=== PATIENT | female | born 1955 | race Caucasian/White ===

== ENCOUNTER 2020-04-25 | Outpatient (REF) | payer MEDICARE, MEDICAID, SELFPAY | END 2020-04-25 00:01 | LOC: HO.MMNH3L | PROVIDERS: Visit Provider Family Medicine | DX: Z20.828 Contact with and (suspected) exposure to other viral communicable diseases (principal) | CPT/HCPCS: U0003 ==

== ENCOUNTER 2020-10-10 07:28 | Outpatient (REF) | payer MEDICARE, MEDICAID, SELFPAY ==
[2020-10-10 09:31] LABS: Alanine Aminotransferase 17 U/L (0-31); Anion Gap 14 (12-20); Aspartate Amino Transferase 25 U/L (5-31); Carbon Dioxide 25 mmol/L (22-29); Chloride 106 mmol/L (96-108); Estimated Glomerular Filt Rate > 60; Potassium 4.6 mmol/L (3.3-5.1); Sodium 140 mmol/L (135-145)
[2020-10-10 09:37] LABS: Carbamazepine Tegretol 9.8 mcg/mL (5.0-12.0)
== END 2020-10-10 07:29 | disposition home or self-care (01) ==
LOC: HO.MMNH3L 07:28
PROVIDERS: Visit Provider Family Medicine
DX: E78.49 Other hyperlipidemia (principal)
CPT/HCPCS: 36415; 80051; 80156; 82565; 84450; 84460

== ENCOUNTER 2021-02-08 06:30 | Outpatient (REF) | payer MEDICARE, MEDICAID, SELFPAY ==
[2021-02-08 06:55] LABS: MANUAL DIFF FLAG NO
[2021-02-08 07:11] LABS: Basophils Percent Auto 0.5 % (0-2); Eosinophils Absolute Auto 0.1 X10*3/uL (0.0-0.4); Eosinophils Percent Auto 1.3 % (0-4); Hematocrit 40.7 % (37-47); Hemoglobin 13.5 g/dl (12.0-16.0); Imm Gran Abs Auto 0.02 X10*3/uL (0.00-0.03); Imm Gran Pct Auto 0.3 % (0.0-0.4); Lymphocytes Absolute Auto 2.7 X10*3/uL (1.2-4.9); Lymphocytes Percent Auto 44.3 % (20-40); Mean Corpuscular HGB Conc 33.2 g/dl (31.0-35.0); Mean Corpuscular Volume 90.4 fL (80-98); Mean Platelet Volume 9.4 fL (9.4-12.3); Monocytes Absolute Auto 0.5 X10*3/uL (0.1-1.2); Monocytes Percent Auto 8.1 % (2-11); Neutrophils Absolute Auto 2.8 X10*3/uL (2.0-8.3); Neutrophils Percent Auto 45.5 % (45-73); Platelet Count 174 X10*3/uL (160-400); White Blood Count 6.2 X10*3/uL (4.8-10.8)
[2021-02-08 07:54] LABS: Alanine Aminotransferase 13 U/L (0-31); Albumin Level 3.7 g/dL (3.5-5.0); Alkaline Phosphatase 74 U/L (39-117); Anion Gap 13 (12-20); Aspartate Amino Transferase 20 U/L (5-31); Bilirubin Direct < 0.2 mg/dL (0.0-0.5); Bilirubin Total < 0.2 mg/dL (0.0-1.0); Blood Urea Nitrogen 17 mg/dL (9-16); Calcium 9.2 mg/dL (8.4-10.2); Carbon Dioxide 26 mmol/L (22-29); Chloride 107 mmol/L (96-108); Estimated Glomerular Filt Rate > 60; Glucose Fasting 80 mg/dL (60-99); Magnesium 2.4 mg/dL (1.6-2.6); Potassium 4.7 mmol/L (3.3-5.1); Sodium 141 mmol/L (135-145); Total Protein 6.8 g/dL (6.5-8.0)
== END 2021-02-08 06:31 | disposition home or self-care (01) ==
LOC: HO.MMNH3L 06:30
PROVIDERS: Visit Provider Family Medicine
DX: I63.9 Cerebral infarction, unspecified (principal); M19.90 Unspecified osteoarthritis, unspecified site; F32.9 Major depressive disorder, single episode, unspecified
CPT/HCPCS: 36415; 80051; 80076; 82310; 82550; 82565; 82947; 83735; 84520; 85025

== ENCOUNTER 2021-09-11 07:36 | Outpatient (REF) | payer MEDICARE, MEDICAID, SELFPAY ==
[2021-09-11 07:40] LABS: MANUAL DIFF FLAG NO
[2021-09-11 08:04] LABS: Basophils Percent Auto 0.3 % (0-2); Eosinophils Absolute Auto 0.1 X10*3/uL (0.0-0.4); Hematocrit 41.7 % (37.0-47.0); Hemoglobin 13.6 g/dl (12.0-16.0); Imm Gran Abs Auto 0.02 X10*3/uL (0.00-0.03); Imm Gran Pct Auto 0.3 % (0.0-0.4); Lymphocytes Percent Auto 28.6 % (20-40); Mean Corpuscular HGB Conc 32.6 g/dl (31.0-35.0); Mean Corpuscular Hemoglobin 29.4 pg (27.0-33.0); Mean Corpuscular Volume 90.1 fL (80.0-98.0); Mean Platelet Volume 9.4 fL (9.4-12.3); Monocytes Absolute Auto 0.5 X10*3/uL (0.1-1.2); Monocytes Percent Auto 6.6 % (2-11); Neutrophils Absolute Auto 4.5 x10*3/uL (2.0-8.3); Neutrophils Percent Auto 63.2 % (45-73); Platelet Count 216 X10*3/uL (160-400); Red Blood Count 4.63 X10*6/uL (4.20-5.50); Red Cell Distribution Width 12.1 % (11.0-16.0); White Blood Count 7.1 X10*3/uL (4.8-10.8)
[2021-09-11 08:24] LABS: Alanine Aminotransferase 16 U/L (0-31); Anion Gap 12 (12-20); Carbon Dioxide 27 mmol/L (22-29); Chloride 105 mmol/L (96-108); Estimated Glomerular Filt Rate > 60; Potassium 4.5 mmol/L (3.3-5.1); Sodium 139 mmol/L (135-145)
[2021-09-11 09:11] LABS: Carbamazepine Tegretol 9.2 mcg/mL (5.0-12.0)
== END 2021-09-11 07:37 | disposition home or self-care (01) ==
LOC: HO.MMNH3L 07:36
PROVIDERS: Visit Provider Family Medicine
DX: I69.993 Ataxia following unspecified cerebrovascular disease (principal); R06.02 Shortness of breath; G40.822 Epileptic spasms, not intractable, without status epilepticus; Z51.81 Encounter for therapeutic drug level monitoring; Z79.899 Other long term (current) drug therapy
CPT/HCPCS: 36415; 80051; 80156; 82565; 84460; 85025

== ENCOUNTER 2022-01-03 05:58 | Outpatient (REF) | payer MEDICARE, MEDICAID, SELFPAY ==
[2022-01-03 06:04] LABS: MANUAL DIFF FLAG NO
[2022-01-03 06:26] LABS: Basophils Percent Auto 0.2 % (0-2); Eosinophils Absolute Auto 0.1 X10*3/uL (0.0-0.4); Eosinophils Percent Auto 1.3 % (0-4); Hematocrit 38.3 % (37.0-47.0); Hemoglobin 12.6 g/dl (12.0-16.0); Imm Gran Abs Auto 0.01 X10*3/uL (0.00-0.03); Imm Gran Pct Auto 0.2 % (0.0-0.4); Lymphocytes Absolute Auto 2.3 X10*3/uL (1.2-4.9); Lymphocytes Percent Auto 42.4 % (20-40); Mean Corpuscular HGB Conc 32.9 g/dl (31.0-35.0); Mean Corpuscular Hemoglobin 30.1 pg (27.0-33.0); Mean Corpuscular Volume 91.4 fL (80.0-98.0); Mean Platelet Volume 9.1 fL (9.4-12.3); Monocytes Absolute Auto 0.5 X10*3/uL (0.1-1.2); Monocytes Percent Auto 10.2 % (2-11); Neutrophils Absolute Auto 2.4 x10*3/uL (2.0-8.3); Neutrophils Percent Auto 45.7 % (45-73); Platelet Count 193 X10*3/uL (160-400); Red Blood Count 4.19 X10*6/uL (4.20-5.50); White Blood Count 5.3 X10*3/uL (4.8-10.8)
[2022-01-03 06:54] LABS: Alanine Aminotransferase 12 U/L (0-31); Aspartate Amino Transferase 19 U/L (5-31); Blood Urea Nitrogen 28 mg/dL (9-16); Estimated Glomerular Filt Rate > 60
[2022-01-03 06:59] LABS: Carbamazepine Tegretol 6.1 mcg/mL (5.0-12.0)
== END 2022-01-03 05:59 | disposition home or self-care (01) ==
LOC: HO.MMNH3L 05:58
PROVIDERS: Visit Provider Family Medicine
DX: G40.822 Epileptic spasms, not intractable, without status epilepticus (principal); E78.5 Hyperlipidemia, unspecified; K21.9 Gastro-esophageal reflux disease without esophagitis
CPT/HCPCS: 36415; 80156; 82565; 84450; 84460; 84520; 85025

== ENCOUNTER 2022-05-09 05:40 | Outpatient (REF) | payer MEDICARE, MEDICAID, SELFPAY ==
[2022-05-09 05:42] LABS: MANUAL DIFF FLAG NO
[2022-05-09 05:50] LABS: Basophils Percent Auto 0.4 % (0-2); Eosinophils Absolute Auto 0.1 X10*3/uL (0.0-0.4); Eosinophils Percent Auto 1.6 % (0-4); Hematocrit 39.4 % (37.0-47.0); Hemoglobin 12.9 g/dl (12.0-16.0); Imm Gran Abs Auto 0.01 X10*3/uL (0.00-0.03); Imm Gran Pct Auto 0.2 % (0.0-0.4); Lymphocytes Absolute Auto 2.1 X10*3/uL (1.2-4.9); Lymphocytes Percent Auto 42.5 % (20-40); Mean Corpuscular HGB Conc 32.7 g/dl (31.0-35.0); Mean Corpuscular Hemoglobin 29.5 pg (27.0-33.0); Mean Platelet Volume 9.2 fL (9.4-12.3); Monocytes Absolute Auto 0.4 X10*3/uL (0.1-1.2); Monocytes Percent Auto 8.1 % (2-11); Neutrophils Absolute Auto 2.3 x10*3/uL (2.0-8.3); Neutrophils Percent Auto 47.2 % (45-73); Platelet Count 168 X10*3/uL (160-400); Red Blood Count 4.38 X10*6/uL (4.20-5.50); Red Cell Distribution Width 12.2 % (11.0-16.0)
[2022-05-09 06:08] LABS: Alanine Aminotransferase 13 U/L (0-31); Albumin Level 3.5 g/dL (3.5-5.0); Alkaline Phosphatase 67 U/L (39-117); Anion Gap 13 (12-20); Aspartate Amino Transferase 18 U/L (5-31); Bilirubin Total 0.5 mg/dL (0.0-1.0); Blood Urea Nitrogen 19 mg/dL (9-16); Calcium 9.1 mg/dL (8.4-10.2); Carbon Dioxide 25 mmol/L (22-29); Chloride 105 mmol/L (96-108); Estimated Glomerular Filt Rate > 60; Glucose Random 86 mg/dL (60-115); Potassium 4.2 mmol/L (3.3-5.1); Sodium 139 mmol/L (135-145); Total Protein 6.5 g/dL (6.5-8.0)
[2022-05-09 06:25] LABS: Erythrocyte Sedimentation Rate 14 MM/HR (0-20)
[2022-05-09 06:28] LABS: T4 Thyroxine 5.5 ug/dL (4.5-12.0)
== END 2022-05-09 05:41 | disposition home or self-care (01) ==
LOC: HO.MMNH3L 05:40
PROVIDERS: Visit Provider Family Medicine
DX: I69.993 Ataxia following unspecified cerebrovascular disease (principal); M62.512 Muscle wasting and atrophy, not elsewhere classified, left shoulder
CPT/HCPCS: 36415; 80053; 84134; 84436; 85025; 85652

== ENCOUNTER 2022-12-19 06:41 | Outpatient (REF) | payer MEDICARE, MEDICAID, SELFPAY ==
[2022-12-19 06:44] LABS: MANUAL DIFF FLAG NO
[2022-12-19 07:16] LABS: Basophils Percent Auto 0.3 % (0-2); Eosinophils Absolute Auto 0.1 X10*3/uL (0.0-0.4); Eosinophils Percent Auto 0.8 % (0-4); Hematocrit 41.2 % (37.0-47.0); Hemoglobin 13.7 g/dl (12.0-16.0); Imm Gran Abs Auto 0.01 X10*3/uL (0.00-0.03); Imm Gran Pct Auto 0.2 % (0.0-0.4); Lymphocytes Absolute Auto 1.8 X10*3/uL (1.2-4.9); Lymphocytes Percent Auto 29.7 % (20-40); Mean Corpuscular HGB Conc 33.3 g/dl (31.0-35.0); Mean Corpuscular Volume 90.4 fL (80.0-98.0); Mean Platelet Volume 9.1 fL (9.4-12.3); Monocytes Absolute Auto 0.4 X10*3/uL (0.1-1.2); Monocytes Percent Auto 6.9 % (2-11); Neutrophils Absolute Auto 3.7 x10*3/uL (2.0-8.3); Neutrophils Percent Auto 62.1 % (45-73); Platelet Count 221 X10*3/uL (160-400); Red Blood Count 4.56 X10*6/uL (4.20-5.50); Red Cell Distribution Width 12.2 % (11.0-16.0); White Blood Count 5.9 X10*3/uL (4.8-10.8)
[2022-12-19 07:35] LABS: Carbamazepine Tegretol 6.2 mcg/mL (5.0-12.0)
[2022-12-19 07:38] LABS: Alanine Aminotransferase 13 U/L (0-31); Aspartate Amino Transferase 23 U/L (5-31); Blood Urea Nitrogen 12 mg/dL (9-16); Estimated Glomerular Filt Rate > 60
== END 2022-12-19 06:42 | disposition home or self-care (01) ==
LOC: HO.MMNH3L 06:41
PROVIDERS: Visit Provider Family Medicine
DX: G40.822 Epileptic spasms, not intractable, without status epilepticus (principal); E78.9 Disorder of lipoprotein metabolism, unspecified; I69.993 Ataxia following unspecified cerebrovascular disease
CPT/HCPCS: 36415; 80156; 82565; 84450; 84460; 84520; 85025

== ENCOUNTER 2023-02-01 20:24 | Outpatient (REF) | payer MEDICARE, MEDICAID, SELFPAY | END 2023-02-01 20:25 | disposition home or self-care (01) | LOC: HO.MMNH3L 20:24 | PROVIDERS: Visit Provider Family Medicine | DX: R50.9 Fever, unspecified (principal) | CPT/HCPCS: 87070 ==

== ENCOUNTER 2023-02-26 06:15 | Outpatient (REF) | payer MEDICARE, MEDICAID, SELFPAY ==
[2023-02-26 07:32] LABS: Carbamazepine Tegretol 8.4 mcg/mL (5.0-12.0)
[2023-03-02 17:28] LABS: Levetiracetam Keppra 24.2 mcg/mL (6.0-46.0)
== END 2023-02-26 06:16 | disposition home or self-care (01) ==
LOC: HO.MMNH3L 06:15
PROVIDERS: Visit Provider Family Medicine
DX: F03.90 Unspecified dementia, unspecified severity, without behavioral disturbance, psychotic disturbance, mood disturbance, and anxiety (principal); G40.822 Epileptic spasms, not intractable, without status epilepticus; F33.1 Major depressive disorder, recurrent, moderate; Z79.899 Other long term (current) drug therapy
CPT/HCPCS: 36415; 80156; 80177

== ENCOUNTER 2023-04-06 16:56 | Inpatient (IN) | payer MEDICARE, MEDICAID, SELFPAY ==
--- NOTE | ~2023-04-06 | XR_ITS ---
Indication: Fall, pain EXAMINATION: Single view of the chest, 2 views of the pelvis and 4 views of the left hip Chest image is compared to previous dated 11/10/2018. Limited from rotation. Mild left basilar opacity may be an area of atelectasis or infiltrate. Some generalized density in the mid to lower lung on the right could be positional. Infiltrate here cannot be excluded. Mild opacity in the right upper lung could be the end of the first rib or possibly an area of infiltrate versus other. There is no pneumothorax or effusion. Cardiac silhouette is grossly unremarkable. Imaging of the pelvis and left hip demonstrates fracture of the subcapital femoral neck on the left. Superior migration of the distal fracture fragment relative to the femoral head. XR/XR hip LT min 2V IMPRESSION: Subcapital femoral neck fracture on the left. Suboptimal chest image. Scattered opacities could represent areas of atelectasis or infiltrate. Follow-up recommended.
--- NOTE | ~2023-04-06 | XR_ITS ---
Indication: Fall, pain EXAMINATION: Single view of the chest, 2 views of the pelvis and 4 views of the left hip Chest image is compared to previous dated 11/10/2018. Limited from rotation. Mild left basilar opacity may be an area of atelectasis or infiltrate. Some generalized density in the mid to lower lung on the right could be positional. Infiltrate here cannot be excluded. Mild opacity in the right upper lung could be the end of the first rib or possibly an area of infiltrate versus other. There is no pneumothorax or effusion. Cardiac silhouette is grossly unremarkable. Imaging of the pelvis and left hip demonstrates fracture of the subcapital femoral neck on the left. Superior migration of the distal fracture fragment relative to the femoral head. XR/XR chest 1V IMPRESSION: Subcapital femoral neck fracture on the left. Suboptimal chest image. Scattered opacities could represent areas of atelectasis or infiltrate. Follow-up recommended.
--- NOTE | 2023-04-06 17:08 | ED_ITS ---
HPI - General Adult General Chief complaint: Extremity Injury, Upper Stated complaint: L HIP FX X2DAYS AGO.FELL DUE TO SZ Time Seen by Provider: 04/06/23 17:06 Source: patient, EMS and other (patient's guardian) Mode of arrival: EMS Limitations: physical limitation (patient has a history of CVA and has difficulty speaking) History of Present Illness HPI narrative: Patient is a 67 year old assigned female at with a history of ataxia and difficulty speaking secondary to a CVA and seizures presenting to the emergency department today with left hip pain. SNF states that the patient had a seizure yesterday, fell, and began to have pain on her left hip. SNF states they got an x-ray there and found a broken hip. SNF states that the patient did not strike her head or have any loss of consciousness with the incident. Patient denies any dizziness, lightheadedness, abdominal pain, nausea, vomiting, fever, chills, blurry vision, double vision, loss of vision, chest pain, difficulty breathing, shortness of breath, back pain, night sweats, pain with urination, increased urinary frequency, increased urinary urgency, blood in her urine or stool, syncope or a near syncopal episode, bowel incontinence, bladder incontinence, bowel retention, bladder retention, or any other complaints at this time. Onset (ago): day(s) (1) Location: left and lower extremity Radiation: non-radiation Severity: mild Severity scale (1-10): 4 Quality: aching and dull Pain Consistency: constant Relieving factors: none Exacerbating factors: none Associated symptoms: denies other symptoms Treatments prior to arrival: none Related Data Allergies Allergy/AdvReac Type Severity Reaction Status Date / Time bupropion [From WELLBUTRIN] Allergy Unknown UNKNOWN Verified 04/06/23 17:25 Review of Systems 2 Constitutional: Constitutional: Reports no additional constitutional complaints, Denies chills, Denies fever(s) and Denies night sweats Eyes: Eyes: Reports no additional eye complaints, Denies blurry vision, Denies change in vision, Denies diplopia, Denies eye discharge, Denies loss of vision and Denies eye pain ENT: Denies dizziness Cardiovascular: Cardiovascular: Reports no additional cardiovascular complaints, Denies chest pain, Denies lightheadedness, Denies Loss of Consciousness and Denies dyspnea Respiratory: Respiratory: Reports no additional respiratory complaints and Denies dyspnea Gastrointestinal: Gastrointestinal: Reports no additional gastrointestinal complaints, Denies abdominal pain, Denies melena, Denies hematochezia, Denies change in bowel habits and Denies change in stool character Genitourinary: Genitourinary: Denies hematuria, Denies urinary frequency, Denies dysuria, Denies urinary incontinence, Denies urinary hesitancy and Denies urinary urgency Musculoskeletal: Musculoskeletal: Reports no additional musculoskeletal complaints, Denies numbness and Denies tingling Comments: left hip pain Neurologic: Denies dizziness, Denies loss of vision, Denies numbness and Denies tingling Comments: patient unable to speak well secondary to CVA Psychiatric: Psychiatric: Reports no additional psychiatric complaints Endocrine: Endocrine: Reports no additional endocrine complaints Hematologic/Lymphatic: Hematologic/Lymphatic: Reports no additional hematologic/lymphatic complaints Allergic/Immunologic: Allergic/Immunologic: Reports no additional allergic/immunologic complaints PMFSH Past Medical History Attestation statement: The following information was validated with the patient. 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) History of CVA (cerebrovascular accident) Social History Social History Patient Tobacco Use Status: Never used Tobacco Smoked in Last 30 Days: No Use of substances other than those prescribed or required for medical reasons: No Advance Directives: Yes Advance Directives on File: Yes Advance Directives Date on File: 04/06/23 Nutrition Risks: No Nutritional Risk Physical Exam ED Vital Signs: Vital Signs - 24 hr 04/06/23 17:30 04/06/23 19:02 Temperature 98.0 F Pulse Rate 85 81 Respiratory Rate 19 Blood Pressure 135/84 125/96 H Pulse Oximetry 95 97 Oxygen Delivery Method Room Air Room Air BMI result Body Mass Index 24.2 Const General: cooperative, no acute distress, alert and awake Nutritional Appearance: well nourished Orientation/consciousness: oriented to person Limitations: no limitations HENMT Head: Yes normal to inspection and Yes atraumatic Ears: hearing grossly normal bilaterally and external ears normal General nose exam: Normal external nose present, no nasal discharge noted and no epistaxis Face and sinus: Yes normal facial exam, No abrasion and No laceration Mouth: Normal oral and palatal mucosa present, no drooling and no muffled voice Eyes General: appearance normal, both eyes and all related structures Periorbital: periorbital findings normal Eyelids: Yes eyelids normal Conjunctivae: conjunctivae normal Pupils: Equal, round and reactive pupils present EOM: EOMs intact bilaterally Neck Neck: Yes normal visual inspection, Yes full ROM and Yes no lymphadenopathy Chest Chest palpation & inspection: normal inspection of the chest Resp Effort & Inspection: normal respiratory effort and able to speak in complete sentences GI Inspection: Yes normal to inspection Neuro General: oriented to person and moves all extremities Cranial nerves: Yes Equal, round and reactive pupils present Extrem Other: decreased ROM of the left hip, pain with palpation to the left hip General: Yes normal to inspection and Yes capillary refill normal Psych Appearance: grossly normal Mental Status: mental status grossly normal Affect: normal affect Attitude: cooperative Thought process: Normal thought process present Thought content: Normal thought content present Insight: Good insight present (Psych) Medications Administered Discontinued Medications Generic Name Dose Route Start Last Admin Trade Name Freq PRN Reason Stop Dose Admin Ceftriaxone Sodium 1 gm/ 50 mls @ 100 mls/hr 04/06/23 18:36 04/06/23 21:15 Sodium Chloride IV 04/06/23 19:05 Infused ONCE ONE Infusion Morphine Sulfate 4 mg 04/06/23 18:36 04/06/23 20:15 Morphine Sulfate 4 Mg/Ml Cartridge IVPUSH 04/06/23 18:37 4 mg ONCE ONE Administration Protocol Ondansetron HCl 4 mg 04/06/23 18:36 04/06/23 20:15 Ondansetron Hcl 4 Mg/2 Ml Vial IVPUSH 04/06/23 18:37 4 mg ONCE ONE Administration Medical Decision Making Medical Decision Making MDM Narrative: Patient is a 67 year old assigned female at with a history of seizures and CVA presenting to the emergency department today with left hip pain after a fall. Patient's physical exam was as noted in the physical exam portion of this note. Patient's blood work was unremarkable. Patient's left hip x-ray showed a fracture of the left subcapital femoral neck with a superior migration of the distal fracture fragment relative to the femoral head. Patient's chest X-ray showed scattered opacities that could represent areas of atelectasas or infiltrates. Given the patient's history of recent seizure, will cover for PNA. Patient given IV Ceftriaxone. Patient's clinical presentation is not consistent with sepsis (@2000). I called and spoke to the patient's guardian Farida Card, who requested we update her home number to [phone]. She requested that although the patient is DNR / DNI, she would like the patient to have her hip repaired. I spoke to the orthopedist who recommended medical admission. I spoke to the hospitalist who agreed to admission. I explained my physical exam findings as well as all test results to the patient and the patient's guardian. I answered all questions asked by the patient and the patient's guardian. Patient and the patient's guardian verbalized agreement and understanding with this treatment plan and admission. Differential Diagnosis Differential Diagnoses: The differential diagnosis associated with the presentation includes Left femur fracture Left hip fracture Fall Pneumonia Admission/Observation Consideration of admission/observation: Escalation of care including admission/observation considered Patient admitted. Consult Healthcare Provider Management of the patient was discussed with: Hospitalist (agreed to admission.) and Dynamometer Mechanic (Spoke to the orthopedist contract paralegal who recommended medical admission.) Lab Data MDM Lab Attestation statement: I reviewed the patient's lab results. My interpretation of these studies and their corresponding values is that they are grossly normal. 04/06/23 21:15 04/06/23 20:09 Labs: Lab Results 04/06/23 04/06/23 Range/Units 19:15 20:09 WBC 9.9 (4.8-10.8) X10*3/uL RBC 4.53 (4.20-5.50) X10*6/uL Hgb 13.5 (12.0-16.0) g/dl Hct 40.4 (37.0-47.0) % MCV 89.2 (80.0-98.0) fL MCH 29.8 (27.0-33.0) pg MCHC 33.4 (31.0-35.0) g/dl RDW 12.4 (11.0-16.0) % Plt Count 162 D (160-400) X10*3/uL MPV 9.2 L (9.4-12.3) fL Immature Gran % (Auto) 0.2 (0.0-0.4) % Neut % (Auto) 79.1 H (45-73) % Lymph % (Auto) 12.1 L (20-40) % [place] % (Auto) 8.5 (2-11) % Eos % (Auto) 0.0 (0-4) % Baso % (Auto) 0.1 (0-2) % Lymph # (Auto) 1.2 (1.2-4.9) X10*3/uL [place] # (Auto) 0.8 (0.1-1.2) X10*3/uL Eos # (Auto) 0.0 (0.0-0.4) X10*3/uL Baso # (Auto) 0.0 (0.0-0.2) X10*3/uL Abs Immat Gran (auto) 0.02 (0.00-0.03) X10*3/uL Absolute Neuts (auto) 7.8 (2.0-8.3) x10*3/uL Absolute Nucleated RBC 0.000 (0.0-0.012) X10*3/uL Nucleated RBC % (auto) 0.0 (0.0-0.2) /100WBC PT 12.7 (11.1-13.3) SEC INR 1.0 (0.9-1.1) APTT 28.1 (26.0-36.4) SEC Sodium 140 (135-145) mmol/L Potassium 4.4 (3.3-5.1) mmol/L Chloride 105 (96-108) mmol/L Carbon Dioxide 24 (22-29) mmol/L Anion Gap 15 (12-20) BUN 23 H (9-16) mg/dL Creatinine 0.63 (0.5-1.4) mg/dL Estim Creat Clear Calc 82.2 Estimated GFR > 60 Random Glucose 113 (60-115) mg/dL Lactic Acid 1.7 (0.5-2.0) mmol/L Calcium 9.2 (8.4-10.2) mg/dL Total Bilirubin 0.6 (0.0-1.0) mg/dL AST 39 H (5-31) U/L ALT 19 (0-31) U/L Alkaline Phosphatase 71 (39-117) U/L Total Protein 7.5 (6.5-8.0) g/dL Albumin 3.6 (3.5-5.0) g/dL Independent Interpretation I performed an independent interpretation of an: Plain X-Ray Interpretation: My interpretation is in agreement with the radiologist's impression of these imaging studies. - EXAMINATION: Single view of the chest, 2 views of the pelvis and 4 views of the left hip Chest image is compared to previous dated 11/10/2018. Limited from rotation. Mild left basilar opacity may be an area of atelectasis or infiltrate. Some generalized density in the mid to lower lung on the right could be positional. Infiltrate here cannot be excluded. Mild opacity in the right upper lung could be the end of the first rib or possibly an area of infiltrate versus other. There is no pneumothorax or effusion. Cardiac silhouette is grossly unremarkable. Imaging of the pelvis and left hip demonstrates fracture of the subcapital femoral neck on the left. Superior migration of the distal fracture fragment relative to the femoral head. XR/XR hip LT min 2V IMPRESSION: Subcapital femoral neck fracture on the left. Suboptimal chest image. Scattered opacities could represent areas of atelectasis or infiltrate. Follow-up recommended. Dictated By: Padilla Vieyra MD Signed By: Electronically signed by Padilla Vieyra MD 04/06/23 4126 Radiology Impression Discussion of test interpretation with radiology: I have reviewed the radiologist's reading. Independent Historian Clinical information obtained from an independent historian. History obtained from or confirmed by: EMS (EMS provided additional history and confirmed the history provided by the patient, the patient's guardian, and SNF staff) and Other (SNF staff and the patient's guardian provided additional history and confirmed the history provided by both the patient and EMS) Critical Care Time Critical Care Time Critical Care Time: Yes Total Critical Care Time: 45 Attestation: I spent 45 minutes of Critical Care Time with this patient. This does not include time spent on separately reported billable procedures. Discharge Plan Discharge Clinical Impression: Left displaced femoral neck fracture, Pneumonia Patient Disposition: Admitted As Inpatient
--- NOTE | 2023-04-06 17:22 | PC.NURSE ---
pt currently in xray at this time.
[2023-04-06 17:25] VITALS: BP 143/89; PULSE 87; O2SAT 94
[2023-04-06 17:26] VITALS: BMI 24.2
[2023-04-06 17:30] VITALS: BP 135/84; PULSE 85; RESP 19; TEMP 36.7; O2SAT 95
[2023-04-06 19:02] VITALS: BP 125/96; PULSE 81; O2SAT 97
--- NOTE | 2023-04-06 19:19 | PC.NURSE ---
pt moved from ED7 to ED9 d/t pt ripping equipment off of their body.
--- NOTE | 2023-04-06 19:20 | PC.NURSE ---
20gIV placed in right AC w/o difficulty. labs drawn and sent to lab. IV access wrapped in gauze for securement at this time.
[2023-04-06 19:23] LABS: Basophils Percent Auto 0.1 % (0-2); Hematocrit 40.4 % (37.0-47.0); Hemoglobin 13.5 g/dl (12.0-16.0); Imm Gran Abs Auto 0.02 X10*3/uL (0.00-0.03); Imm Gran Pct Auto 0.2 % (0.0-0.4); Lymphocytes Absolute Auto 1.2 X10*3/uL (1.2-4.9); Lymphocytes Percent Auto 12.1 % (20-40); MANUAL DIFF FLAG NO; Mean Corpuscular HGB Conc 33.4 g/dl (31.0-35.0); Mean Corpuscular Hemoglobin 29.8 pg (27.0-33.0); Mean Corpuscular Volume 89.2 fL (80.0-98.0); Mean Platelet Volume 9.2 fL (9.4-12.3); Monocytes Absolute Auto 0.8 X10*3/uL (0.1-1.2); Monocytes Percent Auto 8.5 % (2-11); Neutrophils Absolute Auto 7.8 x10*3/uL (2.0-8.3); Neutrophils Percent Auto 79.1 % (45-73); Platelet Count 162 X10*3/uL (160-400); Red Blood Count 4.53 X10*6/uL (4.20-5.50); Red Cell Distribution Width 12.4 % (11.0-16.0); White Blood Count 9.9 X10*3/uL (4.8-10.8)
[2023-04-06 19:34] LABS: Lactic Acid 1.7 mmol/L (0.5-2.0)
[2023-04-06 19:35] LABS: Prothrombin Time 12.7 SEC (11.1-13.3)
[2023-04-06 19:38] LABS: Partial Thromboplastin Time 28.1 SEC (26.0-36.4)
[2023-04-06] MEDS: cefTRIAXone sodium 1 GM in 0.9 % Sodium Chloride 50 ML IV (20:15)
[2023-04-06] MEDS: ondansetron HCL 4 MG/2 ML VIAL IVPUSH (20:15)
[2023-04-06] MEDS: Morphine Sulfate 4 MG/ML CARTRIDGE IVPUSH (20:15)
--- NOTE | 2023-04-06 20:18 | P.HPHOSP_ITS ---
History of Present Illness Date of Service: 04/06/23 <LIZ Mullen - Last Filed: 04/06/23 20:41> Attending physician on admission: Seng Singletary <LIZ Mullen - Last Filed: 04/06/23 20:41> Chief Complaint: fall <LIZ Mullen - Last Filed: 04/06/23 20:41> 67-year-old female with history of seizure disorder, history CVA, ataxia following CVA, and unspecified dementia who is legally blind presented to the ED from [facility] where she resides for evaluation of left hip and left shoulder pain. Apparently she had an epileptic seizure 2 days ago and fell to the ground. X-rays taken at that time but were not resulted until earlier today showing a mildly displaced left subcapital femoral neck fracture so she was transferred to the ER for further evaluation. Patient unable to provide meaningful history. On arrival, vital signs stable. There is no leukocytosis or anemia. Chemistries pending. X-ray of left hip again shows subcapital femoral neck fracture on the left. Chest x-ray obtained but is suboptimal with possible scattered opacities possibly representing areas of atelectasis versus infiltrate. Patient is not coughing, is afebrile and has no leukocytosis. No hypoxia. 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) History of CVA (cerebrovascular accident) <LIZ Mullen - Last Filed: 04/06/23 20:41> Social History: Social History Smoked in Last 30 Days: No Use of substances other than those prescribed or required for medical reasons: No Advance Directives: Yes Advance Directives on File: Yes Advance Directives Date on File: 04/06/23 <LIZ Mullen - Last Filed: 04/06/23 20:41> Meds Allergies/Adverse reactions: Allergies Allergy/AdvReac Type Severity Reaction Status Date / Time bupropion [From WELLBUTRIN] Allergy Unknown UNKNOWN Verified 04/06/23 17:25 <LIZ Mullen - Last Filed: 04/06/23 20:41> Physical Exam 2 Vital Signs and Narrative: Vital Signs: Last Vital Signs Temp 98.0 F 04/06/23 17:30 Pulse 81 04/06/23 19:02 Resp 19 04/06/23 17:30 BP 125/96 H 04/06/23 19:02 Pulse Ox 97 04/06/23 19:02 O2 Del Method Room Air 04/06/23 19:02 BMI result Body Mass Index 24.2 <LIZ Mullen - Last Filed: 04/06/23 20:41> Results Labs CBC and Chem 7: 04/06/23 19:15 04/06/23 20:09 <LIZ Mullen - Last Filed: 04/06/23 20:41> Labs: Laboratory Results - last 24 hr 04/06/23 19:15 MCV 89.2 MCH 29.8 MCHC 33.4 RDW 12.4 Plt Count 162 D MPV 9.2 L Immature Gran % (Auto) 0.2 Neut % (Auto) 79.1 H Lymph % (Auto) 12.1 L [place] % (Auto) 8.5 Eos % (Auto) 0.0 Baso % (Auto) 0.1 Lymph # (Auto) 1.2 [place] # (Auto) 0.8 Eos # (Auto) 0.0 Baso # (Auto) 0.0 Abs Immat Gran (auto) 0.02 Absolute Neuts (auto) 7.8 Absolute Nucleated RBC 0.000 Nucleated RBC % (auto) 0.0 PT 12.7 INR 1.0 APTT 28.1 Lactic Acid 1.7 <LIZ Mullen - Last Filed: 04/06/23 20:41> Imaging Radiologist's Impressions: Impressions Chest X-Ray 04/06/23 17:45 IMPRESSION: Subcapital femoral neck fracture on the left. Suboptimal chest image. Scattered opacities could represent areas of atelectasis or infiltrate. Follow-up recommended. Hip X-Ray 04/06/23 17:45 IMPRESSION: Subcapital femoral neck fracture on the left. Suboptimal chest image. Scattered opacities could represent areas of atelectasis or infiltrate. Follow-up recommended. <LIZ Mullen - Last Filed: 04/06/23 20:41> Assessment and Plan (1) Left displaced femoral neck fracture: Status: Acute <LIZ Mullen - Last Filed: 04/06/23 20:41> 67-year-old female with history of seizure disorder, history CVA, ataxia following CVA, and unspecified dementia who is legally blind admitted for hip fracture. # displaced left femoral neck fracture -orthopedics consult -keep NPO after midnight -pain management p.r.n. # atelectasis on CXR -low suspicion for infiltrates. No WBC elevation, fevers, chills, cough, hypoxia -likely positional # epileptic seizure disorder -continue seizure medications -seizure precautions # unspecified dementia with mood disorder -continue home meds DVT prophylaxis-SCPs DNR/DNI Jc Robles Patient requires inpatient stay at least 2 midnights for management of displaced left femoral neck fracture requiring urgent surgical intervention <LIZ Mullen - Last Filed: 04/06/23 20:41> 67-year-old female with history of seizure disorder, history CVA, ataxia following CVA, and unspecified dementia who is legally blind admitted for hip fracture. # displaced left femoral neck fracture -orthopedics consult -keep NPO after midnight -pain management p.r.n. # Preoperative risk: RCRI score 0 # atelectasis on CXR -low suspicion for infiltrates. No WBC elevation, fevers, chills, cough, hypoxia -likely positional # epileptic seizure disorder -continue seizure medications -seizure precautions # unspecified dementia with mood disorder -continue home meds DVT prophylaxis-SCPs DNR/DNI Jc Robles Patient requires inpatient stay at least 2 midnights for management of displaced left femoral neck fracture requiring urgent surgical intervention <Seng Singletary MD - Last Filed: 04/06/23 21:20> Time Spent With Patient Time: Total time managing care of this patient today ____ minutes. <LIZ Mullen - Last Filed: 04/06/23 20:41> Quality Stroke Does the patient have a stroke diagnosis?: No <LIZ Mullen - Last Filed: 04/06/23 20:41> VTE Prior VTE?: No <LIZ Mullen - Last Filed: 04/06/23 20:41> VTE Risk Level:: Medical - moderate - high <LIZ Mullen - Last Filed: 04/06/23 20:41> VTE Device Contraindication: N/A - Device Ordered <LIZ Mullen - Last Filed: 04/06/23 20:41> VTE Drug Contraindication: Treatment Not Indicated <LIZ Mullen - Last Filed: 04/06/23 20:41>
[2023-04-06 20:41] LABS: Alanine Aminotransferase 19 U/L (0-31); Albumin Level 3.6 g/dL (3.5-5.0); Alkaline Phosphatase 71 U/L (39-117); Anion Gap 15 (12-20); Aspartate Amino Transferase 39 U/L (5-31); Bilirubin Total 0.6 mg/dL (0.0-1.0); Blood Urea Nitrogen 23 mg/dL (9-16); Calcium 9.2 mg/dL (8.4-10.2); Carbon Dioxide 24 mmol/L (22-29); Chloride 105 mmol/L (96-108); Creatinine Clr Calc Pharmacy 82.2; Estimated Glomerular Filt Rate > 60; Glucose Random 113 mg/dL (60-115); Potassium 4.4 mmol/L (3.3-5.1); Sodium 140 mmol/L (135-145); Total Protein 7.5 g/dL (6.5-8.0)
[2023-04-06 21:19] LABS: MANUAL DIFF FLAG NO
[2023-04-06 21:21] LABS: Basophils Percent Auto 0.2 % (0-2); Hematocrit 41.4 % (37.0-47.0); Hemoglobin 13.6 g/dl (12.0-16.0); Imm Gran Abs Auto 0.02 X10*3/uL (0.00-0.03); Imm Gran Pct Auto 0.2 % (0.0-0.4); Lymphocytes Absolute Auto 1.5 X10*3/uL (1.2-4.9); Lymphocytes Percent Auto 14.5 % (20-40); Mean Corpuscular HGB Conc 32.9 g/dl (31.0-35.0); Mean Corpuscular Hemoglobin 29.4 pg (27.0-33.0); Mean Corpuscular Volume 89.6 fL (80.0-98.0); Mean Platelet Volume 10.7 fL (9.4-12.3); Monocytes Percent Auto 9.6 % (2-11); Neutrophils Absolute Auto 8.1 x10*3/uL (2.0-8.3); Neutrophils Percent Auto 75.5 % (45-73); Platelet Count 106 X10*3/uL (160-400); Red Blood Count 4.62 X10*6/uL (4.20-5.50); Red Cell Distribution Width 12.4 % (11.0-16.0); White Blood Count 10.7 X10*3/uL (4.8-10.8)
[2023-04-06 21:40] VITALS: BP 130/72; PULSE 82; RESP 18; TEMP 36.6; O2SAT 93
[2023-04-07 00:46] VITALS: BP 125/77; PULSE 90; RESP 17; TEMP 37.5; O2SAT 92
[2023-04-07 06:12] LABS: Anion Gap 17 (12-20); Blood Urea Nitrogen 23 mg/dL (9-16); Calcium 9.3 mg/dL (8.4-10.2); Carbon Dioxide 17 mmol/L (22-29); Chloride 109 mmol/L (96-108); Creatinine Clr Calc Pharmacy 77.3; Estimated Glomerular Filt Rate > 60; Glucose Random 112 mg/dL (60-115); Potassium 5.1 mmol/L (3.3-5.1); Sodium 138 mmol/L (135-145)
--- NOTE | 2023-04-07 07:48 | HO.PM.IMPN ---
Subjective Subjective Date of Service: 04/07/23 Interval History: f/u on hip fracture from fall appear comfortable Physical Exam Vital Signs: Vital Signs: Last Vital Signs Temp 99.5 F 04/07/23 00:46 Pulse 90 04/07/23 00:46 Resp 17 04/07/23 00:46 BP 125/77 04/07/23 00:46 Pulse Ox 92 04/07/23 00:46 O2 Del Method Room Air 04/07/23 00:46 BMI result Body Mass Index 24.2 Const: Other: General: AO X 3, no acute distress Resp: CTA bilateral CVS: S1,S2,RRR GI: +BS, NT, no distention Skin: No rash Neuro: motor grossly intact Psych: appropriate affect HEENT: Other: General: alert, no distress Resp: CTA bilateral CVS: S1,S2,RRR GI: +BS, NT, no distention Skin: No rash Neuro: motor grossly intact Psych: appropriate affect Objective Data Active Medications Acetaminophen (Acetaminophen 325 Mg Tablet) 650 mg PO Q6H PRN PRN Reason: Pain, Mild (Pain Scale 1-3) Docusate Sodium (Docusate Sodium 100 Mg Capsule) 100 mg PO DAILY PRN PRN Reason: Constipation Ondansetron HCl (Ondansetron Hcl 4 Mg/2 Ml Vial) 4 mg IVPUSH Q8H PRN PRN Reason: Nausea and Vomiting Sodium Chloride (0.9 % Sodium Chloride Flush 3 Ml Syringe) 3 ml IVFLUSH QSHIFT [facility] Last Admin: 04/07/23 00:54 Dose: Not Given Documented By: ODELL Non-Admin Reason: Previously Administered Labs 04/06/23 21:15 04/07/23 05:45 Labs: Laboratory Results - last 24 hr 04/06/23 04/06/23 04/06/23 19:15 20:09 21:15 MCV 89.2 89.6 MCH 29.8 29.4 MCHC 33.4 32.9 RDW 12.4 12.4 Plt Count 162 D 106 L D MPV 9.2 L 10.7 Immature Gran % (Auto) 0.2 0.2 Neut % (Auto) 79.1 H 75.5 H Lymph % (Auto) 12.1 L 14.5 L [place] % (Auto) 8.5 9.6 Eos % (Auto) 0.0 0.0 Baso % (Auto) 0.1 0.2 Lymph # (Auto) 1.2 1.5 [place] # (Auto) 0.8 1.0 Eos # (Auto) 0.0 0.0 Baso # (Auto) 0.0 0.0 Abs Immat Gran (auto) 0.02 0.02 Absolute Neuts (auto) 7.8 8.1 Absolute Nucleated RBC 0.000 0.000 Nucleated RBC % (auto) 0.0 0.0 PT 12.7 INR 1.0 APTT 28.1 Anion Gap 15 Estim Creat Clear Calc 82.2 Estimated GFR > 60 Random Glucose 113 Lactic Acid 1.7 Calcium 9.2 Total Bilirubin 0.6 AST 39 H ALT 19 Alkaline Phosphatase 71 Total Protein 7.5 Albumin 3.6 04/07/23 05:45 MCV MCH MCHC RDW Plt Count MPV Immature Gran % (Auto) Neut % (Auto) Lymph % (Auto) [place] % (Auto) Eos % (Auto) Baso % (Auto) Lymph # (Auto) [place] # (Auto) Eos # (Auto) Baso # (Auto) Abs Immat Gran (auto) Absolute Neuts (auto) Absolute Nucleated RBC Nucleated RBC % (auto) PT INR APTT Anion Gap 17 Estim Creat Clear Calc 77.3 Estimated GFR > 60 Random Glucose 112 Lactic Acid Calcium 9.3 Total Bilirubin AST ALT Alkaline Phosphatase Total Protein Albumin Assessment and Plan (1) Left displaced femoral neck fracture: Status: Acute Plan 67-year-old female with history of seizure disorder, history CVA, ataxia following CVA, and unspecified dementia who is legally blind admitted for hip fracture. # displaced left femoral neck fracture -will need surgery -pain management p.r.n. -Preoperative risk: RCRI score 0, no further testing before surgery # atelectasis on CXR -low suspicion for infiltrates. No WBC elevation, fevers, chills, cough, hypoxia -likely positional and therefore no antibiotics # epileptic seizure disorder -continue seizure medications -seizure precautions # unspecified dementia with mood disorder -continue home meds DVT prophylaxis-SCPs DNR/DNI Guardian- Breann Robles Patient requires inpatient stay at least 2 midnights for management of displaced left femoral neck fracture requiring urgent surgical intervention Time Spent With Patient Time: Total time managing care of this patient today ____ minutes. Quality Stroke Does the patient have a stroke diagnosis?: No VTE Prior VTE?: No VTE Risk Level:: Medical - moderate - high VTE Device Contraindication: N/A - Device Ordered VTE Drug Contraindication: Treatment Not Indicated
[2023-04-07 08:35] VITALS: BP 116/84; PULSE 91; RESP 18; TEMP 36.7; O2SAT 95
--- NOTE | 2023-04-07 08:37 | PC.NURSE ---
patient cleaned and repositioned in room, iv re-dressed in left wrist. moran inserted for patient d/t hip fracture.
--- NOTE | 2023-04-07 09:08 | PHA.MEDREC ---
Pharmacy Consult ? Medication Reconciliation Pharmacy has completed the medication reconciliation. Used list from [facility].
[2023-04-07 09:37] VITALS: BP 127/86; PULSE 83; RESP 17; TEMP 36.7; O2SAT 93
[2023-04-07] MEDS: 0.9 % Sodium Chloride Flush 3 ML SYRINGE IVFLUSH ×3 (10:07→21:17)
[2023-04-07 11:23] VITALS: BMI 24.2
--- NOTE | 2023-04-07 11:23 | PHA.MEDREC ---
Pharmacy Consult ? Medication Reconciliation Called [facility] to confirm Trazodone was dc. Pharmacy has completed the medication reconciliation.
[2023-04-07 15:56] VITALS: BP 136/76; PULSE 81; RESP 18; TEMP 36.4; O2SAT 92
--- NOTE | 2023-04-07 18:50 | P.CONOP_ITS ---
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 Housing: Group Home Do you presently have visiting nurse or other home services: Yes (director prison and nurses at [facility]) Patient Tobacco Use Status: Never used Tobacco Advance Directives Date on File: 04/06/23 Meds Allergies Allergy/AdvReac Type Severity Reaction Status Date / Time bupropion [From WELLBUTRIN] Allergy Unknown UNKNOWN Verified 04/06/23 17:25 Active Medications: Current Medications Acetaminophen (Acetaminophen 325 Mg Tablet) 650 mg PO Q6H PRN PRN Reason: Pain, Mild (Pain Scale 1-3) Docusate Sodium (Docusate Sodium 100 Mg Capsule) 100 mg PO DAILY PRN PRN Reason: Constipation Ondansetron HCl (Ondansetron Hcl 4 Mg/2 Ml Vial) 4 mg IVPUSH Q8H PRN PRN Reason: Nausea and Vomiting Sodium Chloride (0.9 % Sodium Chloride Flush 3 Ml Syringe) 3 ml [facility] [place] Last Admin: 04/07/23 16:25 Dose: 3 ml Home Medications Medication Instructions Recorded Confirmed Last Taken Type acetaminophen 325 mg tablet 650 mg PO Q6H PRN Fever Or Pain 04/07/23 04/07/23 Unknown History acetaminophen 650 mg rectal [address] Q6H PRN Fever 04/07/23 04/07/23 Unknown History suppository aspirin 81 mg tablet,delayed 81 mg PO DAILY 04/07/23 04/07/23 Unknown History release bisacodyl 10 mg rectal suppository [address] DAILY PRN Constipation 04/07/23 04/07/23 Unknown History (Dulcolax (bisacodyl)) carbamazepine 200 mg tablet 200 mg PO TID 04/07/23 04/07/23 Unknown History citalopram 20 mg tablet 20 mg PO DAILY 04/07/23 04/07/23 Unknown History famotidine 40 mg tablet 40 mg PO DAILY 04/07/23 04/07/23 Unknown History gabapentin 300 mg capsule 300 mg PO QAM 04/07/23 04/07/23 Unknown History gabapentin 600 mg tablet 600 mg PO QPM 04/07/23 04/07/23 Unknown History lactulose 10 gram/15 mL oral 15 ml PO Q12H PRN Constipation 04/07/23 04/07/23 Unknown History solution levetiracetam 1,000 mg tablet 1,000 mg PO BID 04/07/23 04/07/23 Unknown History loratadine 10 mg tablet 10 mg PO DAILY 04/07/23 04/07/23 Unknown History magnesium hydroxide 400 mg/5 mL 30 ml PO DAILY PRN Constipation 04/07/23 04/07/23 Unknown History oral suspension (Milk of Magnesia) meclizine 12.5 mg tablet 12.5 mg PO Q8H PRN Motion Sickness 04/07/23 04/07/23 Unknown History ondansetron HCl 4 mg tablet 4 mg PO Q8H PRN Vomiting 04/07/23 04/07/23 Unknown History sennosides 8.6 mg-docusate sodium 1 tab-cap PO BID 04/07/23 04/07/23 Unknown History 50 mg tablet (Senna Plus) sodium chloride 0.65 % nasal spray 1 spray intranasal Q12H PRN Nasal 04/07/23 04/07/23 Unknown History aerosol (Saline Nasal) Congestion Physical Exam 2 Vital Signs: Vital Signs: Last Vital Signs Temp 97.6 F 04/07/23 15:56 Pulse 81 04/07/23 15:56 Resp 18 04/07/23 15:56 BP 136/76 04/07/23 15:56 Pulse Ox 92 04/07/23 15:56 O2 Del Method Room Air 04/07/23 15:56 BMI result Body Mass Index 24.2 Extrem: Other: unable to examine but not responsing to verbal commands pain with motion left hip Results Labs 04/06/23 21:15 04/07/23 05:45 Labs: Abnormal lab results 04/06/23 04/06/23 04/06/23 Range/Units 19:15 20:09 21:15 Plt Count 106 L D (160-400) X10*3/uL MPV 9.2 L (9.4-12.3) fL Neut % (Auto) 79.1 H 75.5 H (45-73) % Lymph % (Auto) 12.1 L 14.5 L (20-40) % Chloride (96-108) mmol/L Carbon Dioxide (22-29) mmol/L BUN 23 H (9-16) mg/dL AST 39 H (5-31) U/L 04/07/23 Range/Units 05:45 Plt Count (160-400) X10*3/uL MPV (9.4-12.3) fL Neut % (Auto) (45-73) % Lymph % (Auto) (20-40) % Chloride 109 H (96-108) mmol/L Carbon Dioxide 17 L (22-29) mmol/L BUN 23 H (9-16) mg/dL AST (5-31) U/L H & H 04/06/23 04/06/23 Range/Units 19:15 21:15 Hgb 13.5 13.6 (12.0-16.0) g/dl Hct 40.4 41.4 (37.0-47.0) % Coagulation 04/06/23 Range/Units 19:15 INR 1.0 (0.9-1.1) All other labs normal. Diagnostic results Hip x-ray: image reviewed (left femoral neck fracture, displaced) Assessment and Plan (1) Left displaced femoral neck fracture: Status: Acute Plan I spoke with nurses at [facility] and with guardian. Patient does not walk at baseline. Surgery in contraindicated given medical condition and lack of ambulation. Pain control and wbat when tolerable. Time Spent With Patient Time: Total time managing care of this patient today ____ minutes. Procedures Date of Service Date of Service: 04/07/23
[2023-04-07 19:49] VITALS: BP 146/67; PULSE 88; RESP 18; TEMP 36.1; O2SAT 94
[2023-04-08 03:06] VITALS: BP 137/71; PULSE 78; RESP 18; TEMP 36.3; O2SAT 99
[2023-04-08 06:54] VITALS: BP 130/68; PULSE 72; RESP 17; TEMP 36.6; O2SAT 99
[2023-04-08] MEDS: 0.9 % Sodium Chloride Flush 3 ML SYRINGE IVFLUSH (07:31)
--- NOTE | 2023-04-08 09:09 | PM.DS ---
DS: Providers Provider Date of Service: 04/08/23 Date of admission: 04/06/23 20:38 Primary care physician: Ray Ureña MD Consults: 04/06/23 21:50 Consult to Orthopedics Routine Consulting Provider: [facility] Reason for consultation: left femoral neck fx DS: Diagnosis Discharge Diagnosis (1) Left displaced femoral neck fracture: Status: Acute DS: Summary Hospital Course Hospital Course: 67-year-old female with history of seizure disorder, history CVA, ataxia following CVA, and unspecified dementia who is legally blind presented to the ED from [facility] where she resides for evaluation of left hip and left shoulder pain. Apparently she had an epileptic seizure 2 days ago and fell to the ground. X-rays taken at that time but were not resulted until earlier today showing a mildly displaced left subcapital femoral neck fracture so she was transferred to the ER for further evaluation. Patient unable to provide meaningful history. On arrival, vital signs stable. There is no leukocytosis or anemia. Chemistries pending. X-ray of left hip again shows subcapital femoral neck fracture on the left. Chest x-ray obtained but is suboptimal with possible scattered opacities possibly representing areas of atelectasis versus infiltrate. Patient is not coughing, is afebrile and has no leukocytosis. No hypoxia. Hospital course: The patient's admission reason was a hip fracture, as mentioned earlier. Evaluation was performed by Orthopedist Dr. Mendieta, and a discussion about the patient's care took place with the guardian. Given that the patient does not have a baseline ability to walk, surgical repair would not provide any additional benefits. Consequently, the approach will be conservative management with a focus on pain control, which is currently well maintained. Concerns arose about a possible pneumonia (PNA) when reviewing the chest X-ray (CXR). However, there are no clinical signs of pneumonia, such as shortness of breath (SOB), cough, fever, or leukocytosis. The X-ray findings are more consistent with atelectasis, and as a result, there is no indication for antibiotic treatment. Time Spent with Patient Time attestation: Total time managing care of this patient today ____ minutes. Discharge coordination time: Greater than 30 minutes Quality: Safe Use of Opioids Does Pt have an Active Cancer Diagnosis on the Problem List?: No Quality: Stroke Does the patient have a stroke diagnosis?: No Physical Exam Vital Signs: Vital Signs: Last Vital Signs Temp 98 F 04/08/23 06:54 Pulse 72 04/08/23 06:54 Resp 17 04/08/23 06:54 BP 130/68 04/08/23 06:54 Pulse Ox 99 04/08/23 06:54 O2 Del Method Room Air 04/08/23 06:54 BMI result Body Mass Index 24.2 DS: Data Data Completed and Pending Labs on day of discharge: Preliminary micro results at discharge 04/06/23 20:09 Blood Culture - Preliminary Blood - Venous No growth after 24 hours. 04/06/23 19:15 Blood Culture - Preliminary Blood - Venous No growth after 24 hours. Discharge Plan Discharge Anticipated Discharge Date/Time: 04/08/23 07:18 Patient Disposition: Xfer SNF Discharge Diagnosis: Hip fracture Referrals: Ray Ureña MD [Primary Care Provider] - 1 Week Discharge Medications: New oxycodone 5 mg tablet 5 mg PO Q6H PRN (Reason: pain (scale score 7-10)) Qty: 20 0RF Rx Instructions: Partial Fill upon patient request. Continued gabapentin 600 mg tablet 600 mg PO QPM ondansetron HCl 4 mg tablet 4 mg PO Q8H PRN (Reason: Vomiting) famotidine 40 mg tablet 40 mg PO DAILY meclizine 12.5 mg tablet 12.5 mg PO Q8H PRN (Reason: Motion Sickness) carbamazepine 200 mg tablet 200 mg PO TID citalopram 20 mg tablet 20 mg PO DAILY gabapentin 300 mg capsule 300 mg PO QAM lactulose 10 gram/15 mL solution 15 ml PO Q12H PRN (Reason: Constipation) levetiracetam 1,000 mg tablet 1,000 mg PO BID aspirin 81 mg Tablet,Delayed Release (Dr/Ec) 81 mg PO DAILY acetaminophen 325 mg Tablet 650 mg PO Q6H PRN (Reason: Fever Or Pain) acetaminophen 650 mg Suppository 650 mg [place] Q6H PRN (Reason: Fever) sennosides-docusate sodium [Senna Plus] 8.6-50 mg Tablet 1 tab-cap PO BID magnesium hydroxide [Milk of Magnesia] 400 mg/5 mL Suspension 30 ml PO DAILY PRN (Reason: Constipation) bisacodyl [Dulcolax (bisacodyl)] 10 mg Suppository 10 mg [place] DAILY PRN (Reason: Constipation) loratadine 10 mg Tablet 10 mg PO DAILY Saline Nasal 0.65 % Aerosol,[place] 1 spray INTRANASAL Q12H PRN (Reason: Nasal Congestion) Discharge Orders: Discharge Order (Routine); Ordered 04/08/23 Ordered By: Mike Holbrook Diet: mech soft, nectar thick l Activity on Discharge: As tolerated Stand Alone Forms: Patient Portal Discharge page Care Plan Goals: recovery from hip fracture Health Concerns: pain control Plan of Treatment: Pain control for hip fracture, no surgery Assessment: as above
--- NOTE | 2023-04-08 10:41 | MHC.CM.PN ---
pt is a ltc pt from [facility] where she is a ltc resident pt is dcd today at 11 her guardian was notified of dc
== END 2023-04-08 11:52 | disposition skilled nursing facility (03) | DRG 536 ==
LOC: HO.ED 17:49 → HO.EDOVER 20:53 → HO.S3 04-07 06:41
PROVIDERS: Physician Assistant Medical; Admitting Provider Physician Assistant; Emergency Provider Emergency Medicine; PCP Family Medicine; Visit Provider Internal Medicine
DX: S72.012A Unspecified intracapsular fracture of left femur, initial encounter for closed fracture (principal); F03.93 Unspecified dementia, unspecified severity, with mood disturbance; J98.11 Atelectasis; W19.XXXA Unspecified fall, initial encounter; H54.8 Legal blindness, as defined in USA; Z66 Do not resuscitate; G40.909 Epilepsy, unspecified, not intractable, without status epilepticus; I69.393 Ataxia following cerebral infarction; I69.328 Other speech and language deficits following cerebral infarction; Z79.82 Long term (current) use of aspirin; Z79.899 Other long term (current) drug therapy
CPT/HCPCS: 36415; 71045; 73502; 80048; 80053; 83605; 85025; 85610; 85730; 87040; 99285; J0696; J2270; J2405

== ENCOUNTER → 2023-04-06 20:38 | Outpatient (BNV) | payer MEDICARE, MEDICAID, SELFPAY | PROVIDERS: Admitting Provider Physician Assistant; Emergency Provider Emergency Medicine; PCP Family Medicine; Visit Provider Orthopaedic Surgery | DX: S72.002A Fracture of unspecified part of neck of left femur, initial encounter for closed fracture (principal) | CPT/HCPCS: 99232 ==

== ENCOUNTER → 2023-04-06 20:38 | Outpatient (BNV) | payer MEDICARE, MEDICAID, SELFPAY | PROVIDERS: Admitting Provider Physician Assistant; Emergency Provider Emergency Medicine; PCP Family Medicine; Visit Provider Physician Assistant | DX: S72.002A Fracture of unspecified part of neck of left femur, initial encounter for closed fracture (principal) | CPT/HCPCS: 99223; 99232; 99239 ==

== ENCOUNTER 2023-04-15 15:28 | Outpatient (REF) | payer MEDICARE, MEDICAID, SELFPAY ==
[2023-04-15 16:01] LABS: Carbamazepine Tegretol 8.1 mcg/mL (5.0-12.0)
[2023-04-20 09:15] LABS: Levetiracetam Keppra 26.8 mcg/mL (6.0-46.0)
== END 2023-04-15 15:29 | disposition home or self-care (01) ==
LOC: HO.MMNH3L 15:28
PROVIDERS: Visit Provider Family Medicine
DX: I69.993 Ataxia following unspecified cerebrovascular disease (principal)
CPT/HCPCS: 36415; 80156; 80177

== ENCOUNTER 2023-04-16 06:01 | Outpatient (REF) | payer MEDICARE, MEDICAID, SELFPAY ==
[2023-04-16 06:05] LABS: MANUAL DIFF FLAG NO
[2023-04-16 06:11] LABS: Basophils Percent Auto 0.2 % (0-2); Eosinophils Absolute Auto 0.1 X10*3/uL (0.0-0.4); Eosinophils Percent Auto 0.9 % (0-4); Hematocrit 38.4 % (37.0-47.0); Hemoglobin 12.1 g/dl (12.0-16.0); Imm Gran Abs Auto 0.01 X10*3/uL (0.00-0.03); Imm Gran Pct Auto 0.2 % (0.0-0.4); Lymphocytes Absolute Auto 1.6 X10*3/uL (1.2-4.9); Mean Corpuscular HGB Conc 31.5 g/dl (31.0-35.0); Mean Corpuscular Hemoglobin 30.1 pg (27.0-33.0); Mean Corpuscular Volume 95.5 fL (80.0-98.0); Mean Platelet Volume 9.2 fL (9.4-12.3); Monocytes Absolute Auto 0.4 X10*3/uL (0.1-1.2); Monocytes Percent Auto 6.5 % (2-11); Neutrophils Absolute Auto 4.5 x10*3/uL (2.0-8.3); Neutrophils Percent Auto 68.2 % (45-73); Platelet Count 242 X10*3/uL (160-400); Red Blood Count 4.02 X10*6/uL (4.20-5.50); Red Cell Distribution Width 13.2 % (11.0-16.0); White Blood Count 6.6 X10*3/uL (4.8-10.8)
== END 2023-04-16 06:02 | disposition home or self-care (01) ==
LOC: HO.MMNH3L 06:01
PROVIDERS: Visit Provider Family Medicine
DX: R53.1 Weakness (principal)
CPT/HCPCS: 36415; 85025

== ENCOUNTER 2023-05-15 06:25 | Outpatient (REF) | payer MEDICARE, MEDICAID, SELFPAY ==
[2023-05-15 06:29] LABS: MANUAL DIFF FLAG NO
[2023-05-15 06:48] LABS: Basophils Percent Auto 0.3 % (0-2); Eosinophils Absolute Auto 0.1 X10*3/uL (0.0-0.4); Eosinophils Percent Auto 0.8 % (0-4); Imm Gran Abs Auto 0.03 X10*3/uL (0.00-0.03); Imm Gran Pct Auto 0.5 % (0.0-0.4); Lymphocytes Absolute Auto 1.8 X10*3/uL (1.2-4.9); Lymphocytes Percent Auto 28.1 % (20-40); Mean Corpuscular HGB Conc 33.3 g/dl (31.0-35.0); Mean Corpuscular Hemoglobin 30.4 pg (27.0-33.0); Mean Corpuscular Volume 91.3 fL (80.0-98.0); Monocytes Absolute Auto 0.5 X10*3/uL (0.1-1.2); Monocytes Percent Auto 7.4 % (2-11); Neutrophils Percent Auto 62.9 % (45-73); Platelet Count 229 X10*3/uL (160-400); Red Cell Distribution Width 13.7 % (11.0-16.0); White Blood Count 6.4 X10*3/uL (4.8-10.8)
[2023-05-15 07:06] LABS: Alanine Aminotransferase 14 U/L (0-31); Albumin Level 3.6 g/dL (3.5-5.0); Alkaline Phosphatase 105 U/L (39-117); Anion Gap 12 (12-20); Aspartate Amino Transferase 22 U/L (5-31); Bilirubin Total 0.4 mg/dL (0.0-1.0); Blood Urea Nitrogen 19 mg/dL (9-16); Calcium 9.4 mg/dL (8.4-10.2); Carbon Dioxide 26 mmol/L (22-29); Chloride 105 mmol/L (96-108); Estimated Glomerular Filt Rate > 60; Glucose Random 87 mg/dL (60-115); Potassium 4.3 mmol/L (3.3-5.1); Sodium 139 mmol/L (135-145); Total Protein 7.3 g/dL (6.5-8.0)
== END 2023-05-15 06:26 | disposition home or self-care (01) ==
LOC: HO.MMNH3L 06:25
PROVIDERS: Visit Provider Family Medicine
DX: I10 Essential (primary) hypertension (principal); M19.90 Unspecified osteoarthritis, unspecified site
CPT/HCPCS: 36415; 80053; 85025

== ENCOUNTER 2023-09-18 05:43 | Outpatient (REF) | payer MEDICARE, MEDICAID, SELFPAY ==
[2023-09-18 06:33] LABS: Carbamazepine Tegretol 6.6 mcg/mL (5.0-12.0)
[2023-09-18 06:41] LABS: Alanine Aminotransferase 13 U/L (0-31); Aspartate Amino Transferase 23 U/L (5-31)
== END 2023-09-18 05:44 | disposition home or self-care (01) ==
LOC: HO.MMNH3L 05:43
PROVIDERS: Visit Provider Family Medicine
DX: I69.993 Ataxia following unspecified cerebrovascular disease (principal)
CPT/HCPCS: 36415; 80156; 84134; 84450; 84460

== ENCOUNTER 2024-02-05 05:56 | Outpatient (REF) | payer MEDICARE, MEDICAID, SELFPAY ==
[2024-02-05 06:00] LABS: MANUAL DIFF FLAG NO
[2024-02-05 06:56] LABS: Basophils Percent Auto 0.4 % (0-2); Eosinophils Absolute Auto 0.1 X10*3/uL (0.0-0.4); Eosinophils Percent Auto 1.8 % (0-4); Hematocrit 38.1 % (37.0-47.0); Hemoglobin 12.7 g/dl (12.0-16.0); Imm Gran Abs Auto 0.02 X10*3/uL (0.00-0.03); Imm Gran Pct Auto 0.4 % (0.0-0.4); Lymphocytes Absolute Auto 2.1 X10*3/uL (1.2-4.9); Lymphocytes Percent Auto 46.3 % (20-40); Mean Corpuscular HGB Conc 33.3 g/dl (31.0-35.0); Mean Corpuscular Hemoglobin 31.8 pg (27.0-33.0); Mean Corpuscular Volume 95.3 fL (80.0-98.0); Mean Platelet Volume 9.2 fL (9.4-12.3); Monocytes Absolute Auto 0.4 X10*3/uL (0.1-1.2); Monocytes Percent Auto 9.8 % (2-11); Neutrophils Absolute Auto 1.8 x10*3/uL (2.0-8.3); Neutrophils Percent Auto 41.3 % (45-73); Platelet Count 175 X10*3/uL (160-400); White Blood Count 4.5 X10*3/uL (4.8-10.8)
[2024-02-05 07:05] LABS: Carbamazepine Tegretol 5.6 mcg/mL (5.0-12.0)
[2024-02-05 07:10] LABS: Alanine Aminotransferase 13 U/L (0-31); Albumin Level 3.4 g/dL (3.5-5.0); Alkaline Phosphatase 63 U/L (39-117); Aspartate Amino Transferase 17 U/L (5-31); Bilirubin Direct 0.2 mg/dL (0.0-0.5); Bilirubin Total 0.4 mg/dL (0.0-1.0); Blood Urea Nitrogen 28 mg/dL (9-16); Estimated Glomerular Filt Rate > 60; Total Protein 6.3 g/dL (6.5-8.0)
[2024-02-05 07:51] LABS: Erythrocyte Sedimentation Rate 14 MM/HR (0-20)
[2024-02-09 02:09] LABS: Levetiracetam Keppra 32.2 mcg/mL (6.0-46.0)
== END 2024-02-05 05:57 | disposition home or self-care (01) ==
LOC: HO.MMNH3L 05:56
PROVIDERS: Visit Provider Family Medicine
DX: G40.822 Epileptic spasms, not intractable, without status epilepticus (principal); Z79.899 Other long term (current) drug therapy
CPT/HCPCS: 36415; 80076; 80156; 80177; 82550; 82565; 84520; 85025; 85652

== ENCOUNTER 2024-02-12 05:53 | Outpatient (REF) | payer MEDICARE, MEDICAID, SELFPAY ==
[2024-02-12 07:15] LABS: Free T4 (Free Thyroxine) 0.78 ng/dL (0.71-1.85)
== END 2024-02-12 05:54 | disposition home or self-care (01) ==
LOC: HO.MMNH3L 05:53
PROVIDERS: Visit Provider Family Medicine
DX: I69.993 Ataxia following unspecified cerebrovascular disease (principal); M15.9 Polyosteoarthritis, unspecified
CPT/HCPCS: 36415; 84439